=== PATIENT | male | born 1945 | race Two or more races ===

== ENCOUNTER 2017-10-14 16:45 | Emergency (ER) | payer OTHER, MEDICAID ==
--- NOTE | 2017-10-14 18:07 | EDPHY ---
H & P Stated Complaint: "prostate pain" Time Seen by Provider: 10/14/17 17:58 HPI/ROS: CHIEF COMPLAINT: "It hurts when I pee" HISTORY OF PRESENT ILLNESS: 72-year-old male history of BPH, complaining of 2 days of dysuria and increased frequency. Initial triage note states"prostate pain". Upon speaking the patient further he denies perineal pain, denies pain with defecation. Denies pain with sitting. Denies fever chills. Denies nausea or vomiting. Denies abdominal pain. Denies flu-like symptoms. Denies back or flank pain. PRIMARY CARE PROVIDER: [facility] REVIEW OF SYSTEMS: A ten point review of systems was performed and is negative with the exception of the items mentioned in the HPI PAST MEDICAL & SURGICAL HISTORY: Benign prostatic hypertrophy SOCIAL HISTORY:Nonsmoker PHYSICAL EXAM (Prior to examination, patient consented to physical exam, hands were washed and my usual and customary physical exam procedures followed) 1) GENERAL: Well-developed, well-nourished, alert and oriented. Appears to be in no acute distress. Smiling shakes my hand appears well, sitting upright appears nontoxic. 2) HEAD: Normocephalic, atraumatic 3) HEENT: Pupils equal, round, reactive to light bilaterally. Sclera anicteric. 4) NECK: Full range of motion, no meningeal signs. 5) LUNGS: Clear auscultation bilaterally, no wheezes, no rhonchi, no retractions. 6) HEART: Regular rate and rhythm, no murmur, no heave, no gallop. 7) ABDOMEN: No guarding, no rebound, no focal tenderness, negative McBurney's, negative Rodney's, negative Rovsing's, negative peritoneal sign, no mass. 8) MUSCULOSKELETAL: Moving all extremities, no focal areas of tenderness, no obvious trauma. No peripheral edema or discoloration. 9) BACK: No CVA tenderness, no midline vertebral tenderness, no fluctuance, no step-off, no obvious trauma, no visual or palpable abnormality. 10) : Normal male external genitalia, perineum nontender, normal inguinal examination, no urethral discharge, no signs of infection, no found Linda's gangrene, testicles and scrotum bilaterally nontender. [11) rectal examination: Prostatic enlargement noted. No tenderness or pain on digital rectal examination DIFFERENTIAL DIAGNOSIS: In no particular include but limited to acute prostatitis, pyelonephritis, cystitis, BPH - Personal History Current Tetanus/Diphtheria Vaccine: Yes Current Tetanus Diphtheria and Acellular Pertussis (TDAP): Yes Tetanus Vaccine Date: 2012 - Medical/Surgical History Hx Asthma: No Hx Chronic Respiratory Disease: No Hx Diabetes: No Hx Cardiac Disease: No Hx Renal Disease: No Hx Cirrhosis: No Hx Alcoholism: No Hx HIV/AIDS: No Hx Splenectomy or Spleen Trauma: No Other PMH: Marisa; hand surg; BPH - Social History Smoking Status: Light smoker Constitutional: Initial Vital Signs Temperature (C) 36.9 C 10/14/17 16:59 Heart Rate 98 10/14/17 16:59 Respiratory Rate 16 10/14/17 16:59 Blood Pressure 134/91 H 10/14/17 16:59 O2 Sat (%) 94 10/14/17 16:59 O2 Delivery Mode Room Air Allergies/Adverse Reactions: No Known Allergies Allergy (Verified 10/14/17 16:58) Home Medications: Medication Instructions Recorded Atorvastatin Calcium 10/14/17 Tamsulosin HCl 10/14/17 levOFLOXACIN [levAQUIN (*)] 750 mg PO DAILY 5 Days #5 tab 10/14/17 Medical Decision Making ED Course/Re-evaluation: 6:10 p.m.: Will obtain urinalysis and re-evaluate. Care of patient under supervision of secondary supervising physician Dr Arciniega . 6:42 p.m.: Patient's urinalysis has returned showing blood no pyuria or bacteriuria. He is complaining of dysuria and increased frequency. Doubt pyelonephritis absence of flank pain or CVA tenderness. Discussed possibility of prostatitis. He does not want have any further laboratory or diagnostic studies performed noting that he distally before gets dark because he is unable to drive in the dark. Given his subjective symptoms I recommended initiation of empiric antibiotic therapy pending cultures which could be followed up by the [facility] on Monday (today is Monday). He started on Levaquin a dose of 750 mg for 5 days. This is different than the 500 mg daily for 28 days for chronic bacterial prostatitis as I want to him to follow up this week with primary care provider at the [facility]. Recommend that he return to the ER if he develops fever, chills, nausea, vomiting flu-like symptoms or any other symptoms that concern him. He feels comfortable with this plan. All questions and concerns addressed by myself. - Data Points Laboratory Results: 10/14/17 18:15 Urine Color YELLOW Urine Appearance CLEAR Urine pH 5.0 (5.0-7.5) Ur Specific [place] 1.016 (1.002-1.030) Urine Protein NEGATIVE (NEGATIVE) Urine Ketones NEGATIVE (NEGATIVE) Urine Blood 1+ H (NEGATIVE) Urine Nitrate NEGATIVE (NEGATIVE) Urine Bilirubin NEGATIVE (NEGATIVE) Urine Urobilinogen 2.0 EU H EU (0.2-1.0) Ur Leukocyte Esterase NEGATIVE (NEGATIVE) Urine RBC 1-3 /hpf /hpf (0-3) Urine WBC 1-3 /hpf /hpf (0-3) Ur Epithelial Cells TRACE /lpf /lpf (NONE-1+) Urine Glucose NEGATIVE (NEGATIVE) Departure - Departure Disposition: Home, Routine, Self-Care Clinical Impression: Dysuria Condition: Good Instructions: Dysuria (ED) Additional Instructions: Return to the ER if you develop fevers, flu-like symptoms, vomiting, or any other symptoms that concern you. Regrese al departamento de Emergencias si desarolla fiebre, sintomas de gripe, vomitos, o cualquier otro sintoma qu le preocupe. Referrals: Katarina Zazueta MD [Primary Care Provider] - 10/16/17 Prescriptions: levOFLOXACIN [levAQUIN (*)] 750 mg PO DAILY 5 Days #5 tab
[2017-10-14 18:52] VITALS: BP 135/85
== END 2017-10-14 18:52 | disposition home or self-care (01) ==
DX: R30.0 Dysuria (principal); F17.200 Nicotine dependence, unspecified, uncomplicated

== ENCOUNTER 2017-10-17 09:33 | Emergency (ER) | payer OTHER, MEDICAID ==
--- NOTE | 2017-10-17 09:56 | EDPHY ---
General Time Seen by Provider: 10/17/17 09:45 Narrative: CHIEF COMPLAINT: "my penis hurts when I pee" HISTORY OF PRESENT ILLNESS: Patient presents with complaints of painful urination over the past 2-3 weeks. Gradual onset. Constant duration with some periods of improvement. It is pain- free during rash. It occurs only when he urinates. At times he does have some pain above the right flank when he sits. No fever. No nausea or vomiting. No abdominal pain of any kind. No testicular pain of any kind. He was evaluated here 3 days ago with prescription of Levaquin provided. He has been taking this with no improvement of the symptoms. He was to return if this happened no other associated complaints or modifying factors. HPI obtained using the hospital's certified [place] humanities and languages professor at bedside in patient's room. REVIEW OF SYSTEMS: Ten systems reviewed and are negative unless otherwise noted in the HPI PCP: [facility] SPECIALISTS: None PAST MEDICAL HISTORY: Denies PAST SURGICAL HISTORY: None SOCIAL HISTORY: Occasional tobacco and alcohol use. Retired from [employer] work FAMILY HISTORY: Noncontributory EXAMINATION General Appearance: Alert, no distress Head: normocephalic, atraumatic Eyes: Pupils equal and round, no conjunctival pallor or injection ENT, Mouth: Mucous membranes moist Neck: Normal inspection, supple, non-tender Respiratory: Lungs are clear to auscultation Cardiovascular: Regular rate and rhythm Gastrointestinal: Abdomen is soft and nontender. No tympany. No rigidity. No guarding. No CVA tenderness. : Deferred by patient Back: non-tender, no bony abnormalities Neurological: A&O, nonfocal, normal gait. Mild resting tremor. Skin: Warm and dry, no rash no petechiae or purpura Extremities: Nontender, no pedal edema Psychiatric: Mood and affect normal Exam performed using the hospital's certified [place] humanities [employer] languages professor at bedside in patient's room. DIFFERENTIAL DIAGNOSES: Including but not limited to urethral stricture, BPH, prostatitis, UTI, renal colic, urethritis MDM: 9:45 a.m. Penile pain for 2-3 weeks duration without any improvement on Levaquin once daily since the 14 of October. He has no abdominal pain. No flank pain at this time. No fever or chills. No urethral discharge. He has a normal examination. I have reviewed the urine culture from his previous visit. There was less than 100,000 of 2 different colonies with no final growth and no sensitivity. I am recheck and urinalysis to evaluate for the possibility of blood. He is in no acute distress. 10:35 a.m. Patient re-evaluated. He is resting comfortably. I discussed the negative urinalysis. We discussed possibility of urethritis, urethral stricture, BPH other etiologies. I do feel he is stable for discharge home. I instructed him to finished his Levaquin as previously prescribed. He will be provided the Urology on-call for outpatient appointment. We discussed ED precautions including flank pain, any abdominal pain, fever, hematuria. He is comfortable this plan. I have answered all of his questions. Discharged home stable condition. The [facility] certified [place] humanities [employer] languages professor, Jaime, has help the patient make an appointment prior to being discharged home. SUPERVISION: Patient was independently examined, but I discussed the case with my secondary supervising physician Dr. Maldonado - History Smoking Status: Light smoker - Objective Vital Signs: Initial Vital Signs Temperature (C) 98.2 F 10/17/17 09:38 Heart Rate 85 10/17/17 09:38 Respiratory Rate 16 10/17/17 09:38 Blood Pressure 149/98 H 10/17/17 09:38 O2 Sat (%) 95 10/17/17 09:38 O2 Delivery Mode Room Air Allergies/Adverse Reactions: No Known Allergies Allergy (Verified 10/14/17 16:58) Home Medications: Medication Instructions Recorded levOFLOXACIN [levAQUIN (*)] 750 mg PO DAILY 5 Days #5 tab 10/14/17 Laboratory Results: 10/17/17 09:50 Urine Color YELLOW Urine Appearance CLEAR Urine pH 7.0 (5.0-7.5) Ur Specific [place] 1.011 (1.002-1.030) Urine Protein NEGATIVE (NEGATIVE) Urine Ketones NEGATIVE (NEGATIVE) Urine Blood NEGATIVE (NEGATIVE) Urine Nitrate NEGATIVE (NEGATIVE) Urine Bilirubin NEGATIVE (NEGATIVE) Urine Urobilinogen NEGATIVE EU EU (0.2-1.0) Ur Leukocyte Esterase NEGATIVE (NEGATIVE) Urine RBC 1-3 /hpf /hpf (0-3) Urine WBC 1-3 /hpf /hpf (0-3) Ur Epithelial Cells NONE SEEN /lpf /lpf (NONE-1+) Urine Glucose NEGATIVE (NEGATIVE) Departure - Departure Disposition: Home, Routine, Self-Care Clinical Impression: Dysuria Condition: Good Instructions: Dysuria (ED) Additional Instructions: 1. Contact Urology for outpatient follow-up 2. ED precautions for worsening pain, flank pain, any abdominal pain, fever, vomiting or bright red blood in the urine Referrals: [facility] [Other] - As per Instructions David Corral MD [Medical Doctor] - As per Instructions
[2017-10-17 10:34] VITALS: BP 134/86
[2017-10-18 12:35] LABS: GC AMPLIFICATION GENPROBE NEGATIVE (NEGATIVE)
== END 2017-10-17 11:30 | disposition home or self-care (01) ==
DX: R30.0 Dysuria (principal); F17.200 Nicotine dependence, unspecified, uncomplicated

== ENCOUNTER → 2018-09-17 | Outpatient (CLI) | payer OTHER | LOC: BHFA 09:00 | PROVIDERS: ATTEND Internal Medicine Cardiovascular Disease | DX: I25.10 Atherosclerotic heart disease of native coronary artery without angina pectoris (principal) | CPT/HCPCS: 78452; 93017; A9500 ==